=== PATIENT | male | born 1960 | race Caucasian/White ===

== ENCOUNTER 2017-02-14 00:29 | Inpatient (IN) | payer OTHER ==
[2017-02-14] VITALS (13 sets, daily range): BP systolic 95–124; BP diastolic 73–84
[~2017-02-14] VITALS: Ht 203.2 cm; Wt 100.7 kg
--- NOTE | ~2017-02-14 | D ---
[facility] [place] [address] DISCHARGE SUMMARY Name: LAN PLASCENCIA Room #: 208-P [facility] IN M.R.#: [id number] Admission: 02/14/17 Attend Phys: Louis Andrea MD Discharge: 02/16/17 Date of : 58 Report #: [id number] THIS REPORT FOR: //name// CC: Louis LUND [facility] DATE OF SERVICE: 02/16/2017 FINAL DIAGNOSES: 1. Anterior wall myocardial infarction, status post percutaneous angioplasty. 2. Hypercholesterolemia. 3. Gastroesophageal reflux disease. 4. Remote history of atrial fibrillation. 5. Schizophrenia. 6. Iovpkpg-Lqscr-Iprtp disease. HOSPITAL COURSE: Please see the original H and P for full details. The patient presented with substernal chest pains, diagnosed with an acute anterior wall myocardial infarction. Please see the laborer golf course report for full details. He was found to have total occlusion of the LAD just after takeoff of the first diagonal artery. Percutaneous angioplasty was performed with placement of a drug-eluting stent. The patient was transferred to the CCU for monitoring. He remained stable on the CCU floor. The beta rob was added to his medical regimen. The LV function during the OK was approximately 40-45%. An VINICIO inhibitor was not added in view of a low blood pressure. Clinically, he reported no further episodes of angina. He is stable for discharge and follow up in the office. FINAL DISPOSITION: Aspirin 325 mg daily, Effient 10 mg daily, Toprol-XL 50 mg daily, and atorvastatin 40 mg at night. <ELECTRONICALLY SIGNED> By: Louis Andrea MD 02/18/17 0809 0909 1003 Louis Andrea MD /nt
--- NOTE | ~2017-02-14 | CATHLAB ---
[facility] [place] [address] INVASIVE PROCEDURE REPORT Name: LAN PLASCENCIA Room #: 208-P ADM IN M.R.#: [id number] Admission: 02/14/17 Attend Phys: Louis Andrea MD Discharge: Date of : 58 Date of Service: 02/14/17 0208 Report #: [id number] THIS REPORT FOR: //name// CC: Louis Landrum NO PCP DATE OF SERVICE: 02/14/2017 INDICATIONS: Acute anterior wall OH. The patient was treated with aspirin, nitro, and heparin in the ER. In the laborer, the right groin area was prepped and draped in a sterile manner. Lidocaine was given subcutaneously. A 6-Lao sheath was inserted into the right femoral artery via modified Seldinger technique. CORONARY ANATOMY: Left main artery is a large caliber vessel, with no flow-limiting lesions. The LAD is totally occluded in the mid segment just after the takeoff of the first diagonal artery. The left circumflex artery is a moderate to large size caliber vessel, dominant, as it supplies the left PDA. There is mild disease in the proximal segment of the left circumflex artery, 20%. The first OM is a moderate size caliber vessel, with mild disease proximally. The second obtuse marginal artery has a moderate stenosis in the proximal segment, 50%. The left PDA has mild disease proximally. The RCA is a small, nondominant vessel. A left ventriculogram was performed at the end of the procedure, revealing mild to moderate segmental left ventricular dysfunction, EF of 40% to 45%. There is hypokinesis of the anterior lateral wall. The LVEDP is approximately 30 mmHg. There is no gradient across the outflow tract. ANGIOPLASTY REPORT: A 6-Lao system was used. The patient was given IV Cangrelor and IV Angiomax. I was able to pass a Luge wire through the obstruction in the LAD and placed it into the distal portion. The occluded area was predilated with a 2.0 mm Euphora balloon. There was a long area of stenosis, I elected to place a 2.75 x 30 mm Resolute (drug-eluting stent), inflated up to 14 atmospheres. This stent was postdilated with a 3.[address] [address] INVASIVE PROCEDURE REPORT Name: LAN PLASCENCIA Room #: 208-P [facility] IN [facility]#: [id number] Admission: 02/14/17 Attend Phys: Louis Andrea MD Discharge: Date of : 58 Date of Service: 02/14/17 0208 Report #: [id number] noncompliant balloon, NC Euphora, dilated up to 16 atmospheres. Final injections revealed ROM 3 blood flow with a 0% residual stenosis at the lesion site. IMPRESSION: 1. Successful insertion of a drug-eluting stent into the total occlusion in the mid segment of the left anterior descending coronary artery. 2. Left dominant system. 3. Moderate disease in the second obtuse marginal artery. 4. Mild to moderate segmental left ventricular dysfunction. 5. Recommend dual antiplatelet therapy. <ELECTRONICALLY SIGNED> By: Louis Andrea MD 02/14/172111 7 20 Louis Andrea MD /nt
--- NOTE | ~2017-02-14 | EKG ---
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
--- NOTE | ~2017-02-14 | H ---
[facility] [place] [address] HISTORY AND PHYSICAL Name: LAN PLASCENCIA Room #: 208-P [facility] IN M.R.#: [id number] Admission: 02/14/17 Attend Phys: Louis Andrea MD Discharge: Date of : 58 Report #: [id number] THIS REPORT FOR: //name// CC: Louis LUND PCP INDICATION: Chest pains. HISTORY OF PRESENT ILLNESS: This is a 56-year-old gentleman presenting with acute onset of substernal chest pain and shortness of breath. He resides at a [facility] and developed chest pain around little bit after midnight. The ECG done by EMS revealed ST elevation in the anterior leads. The patient denies any history of fever, chills, or nausea. There is no history of diabetes mellitus or hypertension. PAST MEDICAL HISTORY: Atrial fibrillation approximately 10 years ago at [facility]. History of GERD, osteoarthritis, Xaabobg-Jwryg-Izauf disease, schizophrenia. ALLERGIES: PENICILLIN. CURRENT MEDICATIONS: Include aspirin once a day, fish oil, hydrocodone, omeprazole 20 mg daily, supplements. SOCIAL HISTORY: Denies tobacco use, resides at the [facility]. Denies any history of tobacco use. FAMILY HISTORY: Negative for premature CAD. REVIEW OF SYSTEMS: A full 10-point review of systems is performed. Only the pertinent positives and negatives are described in the HPI. PHYSICAL EXAMINATION: VITAL SIGNS: Blood pressure is 130/70, heart rate is 80 beats per minute. GENERAL APPEARANCE: He is a well-developed, well-nourished male in no acute respiratory distress. HEAD AND EYES: Normocephalic. Sclerae are anicteric. ENT: Oral mucosa moist. NECK: Supple. LUNGS: Clear to auscultation. CARDIAC: Regular rate and rhythm, S1, S2 positive. No gallops. ABDOMEN: Soft, nontender. Bowel sounds positive. EXTREMITIES: No major joint deformities. No edema. LABORATORY VALUES: ECG reveals sinus rhythm with ST elevation in leads V1 through V4. [facility] [address] [place] [address] HISTORY AND PHYSICAL Name: DANVILLELAN Room #: [address] [place] [address] IN .R.#: [id number] Admission: 02/14/17 Attend Phys: Louis Andrea MD Discharge: Date of : 58 Report #: [id number] ASSESSMENT AND PLAN: 1. Rule out acute anteroseptal myocardial infarction. The patient will be taken emergently to the cardiac tag and label cutter. The procedure was discussed with the patient. 2. Remote history of atrial fibrillation, remains in sinus rhythm. 3. Gastroesophageal reflux disease. 4. Osteoarthritis. 5. Hypercholesterolemia, will need a lipid panel evaluated. <ELECTRONICALLY SIGNED> By: Louis Andrea MD 02/14/17 0819 0102 0301 Louis Andrea MD /nt
--- NOTE | ~2017-02-14 | EKG ---
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 : 1960 Requested By: Louis Andrea Order Number: [id number] : Ammon Montes Measurements Intervals [place] Rate: 78 P: 35 KS: 196 QRS: 112 QRSD: 100 T: 141 QT: 415 QTc: 473 Interpretive Statements Sinus rhythm Left posterior fascicular block Probable anteroseptal infarct, recent Lateral leads are also involved No previous ECG available for comparison Electronically Signed On 02-16-2017 8:54:29 CDT by Ammon Montes [email or web address] <ELECTRONICALLY SIGNED> By: Ammon Montes MD 02/16/17 0854 D: 05716 6 Ammon Montes MD /ARLEN
--- NOTE | ~2017-02-14 | EKG ---
[address] [address] ELECTROCARDIOGRAM REPORT Name: LAN PLASCENCIA Room #: 208-P ADM IN M.R.#: [id number] Admission: 02/14/17 Attend Phys: Louis Andrea MD Discharge: Date of : 58 Report #: [id number] THIS REPORT FOR: //name// [facility] Test Date: 2017-02-14 Test Time: 07:49:14 Pat Name: LAN PLASCENCIA Department: Room: 208 P Gender: M Regulatory Scientist: clarice : 1960 Requested By: Louis Andrea Order Number: [id number] MD: Ammon Montes Measurements Intervals [place] Rate: 93 P: 59 TN: 202 QRS: 100 QRSD: 84 T: 88 QT: 357 QTc: 445 Interpretive Statements Sinus rhythm Borderline prolonged TN interval Nonspecific T abnormalities, lateral leads No previous ECG available for comparison Electronically Signed On 02-16-2017 9:03:01 CDT by Ammon Montes [email or web address] <ELECTRONICALLY SIGNED> By: Ammon Montes MD 02/16/17 0903 0749 0749 Ammon Montes MD /ARLEN
[2017-02-14 00:53] LABS: BASOPHILS 0.4 % (0.0-2.0); EOSINOPHILS 5.8 % (0.0-3.0); HEMATOCRIT 42.6 % (42.0-52.0); HEMOGLOBIN 14.3 gm/dL (14.0-18.0); LYMPHOCYTES 29.2 % (24.0-44.0); MCH 29.6 pg (26.0-34.0); MCHC 33.5 g/dL (28.0-37.0); MCV 88.3 fL (80.0-100.0); MONOCYTES 7.3 % (1.0-8.0); PLATELET COUNT 220 thou/uL (150-400); POLYS 57.3 % (36.0-66.0); RBC 4.82 mil/uL (4.50-6.00); RDW 14.1 % (10.5-14.5); WBC 10.5 thou/uL (4.0-11.0)
[2017-02-14 01:05] LABS: MANUAL DIFF NO
[2017-02-14 01:08] LABS: ANION GAP 12 mmol/L (7-16); BUN 9 mg/dL (7-18); CALCIUM 8.8 mg/dL (8.5-10.1); CHLORIDE 104 mmol/L (98-107); CO2 24 mmol/L (21-32); CREATININE 1.3 mg/dL (0.7-1.3); GLUCOSE 187 mg/dL (74-106); POTASSIUM 3.1 mmol/L (3.5-5.1); PROTIME 10.5 Seconds (9.3-11.4); SODIUM 140 mmol/L (136-145)
[2017-02-14 01:19] LABS: ALBUMIN 3.6 g/dL (3.4-5.0); ALKALINE PHOSPHATASE 61 U/L (46-116); MAGNESIUM 1.7 mg/dL (1.8-2.4); NT-PRO BRAIN NAT PEPTIDE 18 pg/mL (<300); SGOT 20 U/L (15-37); SGPT 31 U/L (30-65); TOTAL BILIRUBIN 0.1 mg/dL (<0.1-1.0); TOTAL PROTEIN 7.4 g/dL (6.4-8.2); TROPONIN-I < 0.04 ng/mL (<0.04-0.07)
[2017-02-14] MEDS ORDERED: ASPIRIN325 PO (04:13)
[2017-02-14] MEDS ORDERED: ZYRTEC10 M5 PO (04:14)
[2017-02-14] MEDS ORDERED: FISH OIL 1,001000 M2 PO (04:15)
[2017-02-14] MEDS ORDERED: CO Q-10100 MG PO (04:15)
[2017-02-14] MEDS ORDERED: HYDROCODONE-AP1 EAC6 PO (04:16)
[2017-02-14] MEDS ORDERED: OMEPRAZOLE20 M2 PO (04:17)
[2017-02-14] MEDS ORDERED: ONE DAILY FOR1 EACH PO (04:18)
[2017-02-14] MEDS ORDERED: OYSTER SHELL 51 EACH PO (04:19)
[2017-02-14] MEDS ORDERED: [UNRECOGNIZED DRUG - OTHER] PO (04:20)
[2017-02-14 07:37] LABS: HEMOGLOBIN 15.2 gm/dL (14.0-18.0); MCH 29.5 pg (26.0-34.0); MCHC 33.8 g/dL (28.0-37.0); MCV 87.2 fL (80.0-100.0); RBC 5.17 mil/uL (4.50-6.00); RDW 13.9 % (10.5-14.5)
[2017-02-14 07:54] LABS: ANION GAP 11 mmol/L (7-16); BUN 9 mg/dL (7-18); CALCIUM 9.1 mg/dL (8.5-10.1); CHLORIDE 104 mmol/L (98-107); CHOLESTEROL 203 mg/dL (<200); CO2 26 mmol/L (21-32); CREATININE 1.2 mg/dL (0.7-1.3); GLUCOSE 109 mg/dL (74-106); HDL CHOLESTEROL 33 mg/dL (>40); LDL CHOLESTEROL 99 mg/dL (<100); SODIUM 141 mmol/L (136-145); TC:HDL 6.2 Ratio (Not establshd); TRIGLYCERIDE 357 mg/dL (<150); VLDL 71 mg/dL (<40)
[2017-02-14 07:55] LABS: POTASSIUM 4.2 mmol/L (3.5-5.1)
[2017-02-14 08:18] LABS: TROPONIN-I 71.81 ng/mL (<0.04-0.07)
[2017-02-15 02:59] LABS: HEMATOCRIT 41.1 % (42.0-52.0); HEMOGLOBIN 13.9 gm/dL (14.0-18.0); MCH 29.4 pg (26.0-34.0); MCHC 33.8 g/dL (28.0-37.0); MCV 86.7 fL (80.0-100.0); RBC 4.74 mil/uL (4.50-6.00); RDW 13.7 % (10.5-14.5); WBC 11.3 thou/uL (4.0-11.0)
[2017-02-15 03:13] LABS: CALCIUM 8.5 mg/dL (8.5-10.1); CREATININE 1.1 mg/dL (0.7-1.3); POTASSIUM 3.5 mmol/L (3.5-5.1)
[2017-02-15 05:46] VITALS: BP 146/74
[2017-02-15 08:25] VITALS: BP 94/66
[2017-02-15 11:03] VITALS: BP 88/60
[2017-02-15 15:23] VITALS: BP 106/70
[2017-02-15 20:14] VITALS: BP 116/76
[2017-02-16 03:41] VITALS: BP 110/89
[2017-02-16 05:32] LABS: CALCIUM 8.8 mg/dL (8.5-10.1); CREATININE 1.2 mg/dL (0.7-1.3); POTASSIUM 3.8 mmol/L (3.5-5.1)
[2017-02-16 05:34] LABS: TROPONIN-I 11.49 ng/mL (<0.04-0.07)
[2017-02-16] MEDS ORDERED: EFFIENT10 MG PO (07:57)
[2017-02-16] MEDS ORDERED: TOPROL XL25 MG PO (07:57)
[2017-02-16] MEDS ORDERED: ATORVASTATIN CA40 MG PO (07:57)
[2017-02-16 08:35] VITALS: BP 99/61
[2017-02-16 08:38] VITALS: BP 110/89
== END 2017-02-16 14:13 | DRG 247 ==
LOC: ER 00:29 → 2N 01:04 → TBA 01:04 → 2N 03:27
PROVIDERS: Internal Medicine Cardiovascular Disease; Nurse Practitioner Family
PROC: 027034Z Dilation of Coronary Artery, One Artery with Drug-eluting Intraluminal Device, Percutaneous Approach (ICD-10-PCS; principal; 2017-02-14)
PROC: B2111ZZ Fluoroscopy of Multiple Coronary Arteries using Low Osmolar Contrast (ICD-10-PCS; principal; 2017-02-14)
PROC: 4A023N7 Measurement of Cardiac Sampling and Pressure, Left Heart, Percutaneous Approach (ICD-10-PCS; principal; 2017-02-14)
PROC: B2151ZZ Fluoroscopy of Left Heart using Low Osmolar Contrast (ICD-10-PCS; principal; 2017-02-14)
DX: I21.09 ST elevation (STEMI) myocardial infarction involving other coronary artery of anterior wall (principal); E78.00 Pure hypercholesterolemia, unspecified; K21.9 Gastro-esophageal reflux disease without esophagitis; I48.91 Unspecified atrial fibrillation; E78.5 Hyperlipidemia, unspecified; I25.82 Chronic total occlusion of coronary artery; F20.9 Schizophrenia, unspecified; G60.0 Hereditary motor and sensory neuropathy; M19.90 Unspecified osteoarthritis, unspecified site; Z79.82 Long term (current) use of aspirin; Z79.01 Long term (current) use of anticoagulants; Z79.899 Other long term (current) drug therapy; Z88.0 Allergy status to penicillin; Z91.048 Other nonmedicinal substance allergy status
CPT/HCPCS: 10081

== ENCOUNTER → 2017-04-20 | Outpatient (CLI) | payer OTHER ==
[~2017-04-20] MED LIST: ASPIRIN325 PO; ATORVASTATIN CA40 MG PO; CO Q-10100 MG PO; EFFIENT10 MG PO; FISH OIL 1,001000 M2 PO; HYDROCODONE-AP1 EAC6 PO; OMEPRAZOLE20 M2 PO; ONE DAILY FOR1 EACH PO; OYSTER SHELL 51 EACH PO; TOPROL XL25 MG PO; ZYRTEC10 M5 PO; [UNRECOGNIZED DRUG - OTHER] PO
--- NOTE | ~2017-04-20 | 2DMMODE ---
[facility] [address] [address] 2 D/M-MODE ECHOCARDIOGRAM Name: LAN PLASCENCIA Room #: REG [facility]#: [id number] Admission: 04/20/17 Attend Phys: Louis Andrea MD Discharge: Date of : 58 Date of Service: 04/20/17 1432 Report #: [id number] THIS REPORT FOR: //name// APPROVED REPORT Study performed: 04/20/2017 12:50:24 EXAM: Comprehensive 2D, Doppler, and color-flow Echocardiogram Patient Location: Echo lab Other Information Study Quality: Good Indications Atrial Fibrillation CAD 2D Dimensions RVDd: 33.72 mm LVEF(%): 68.39 (>50%) IVSd: 13.81 (7-11mm) LVOT Diam: 22.76 (18-24mm) LVDd: 46.69 mm PWd: 14.08 (7-11mm) Ascending Ao: 31.56 (22-36mm) LVDs: 28.87 (25-40mm) Aortic Root: 33.49 mm IVC: 11.00 mm Castro's LVEF: 68.39 % Volumes Left Atrial Volume (Systole) Single Plane 4CH: 33.07 mL Single Plane 2CH: 37.65 mL LA ESV Index: 16.00 mL/m2 Aortic Valve AoV Peak Marbin.: 1.11 m/s AO Peak Gr.: 4.92 mmHg LVOT Max P.86 mmHg LVOT Max V: 0.85 m/s BENIGNO Vmax: 3.10 cm2 Mitral Valve E/A Ratio: 0.6 MV Decel. Time: 219.61 ms MV E Max Marbin.: 0.51 m/s MV A Marbin.: 0.79 m/s MV PHT: 63.69 ms IVRT: 152.25 ms [facility] [place] [address] 2 D/M-MODE ECHOCARDIOGRAM Name: LAN PLASCENCIA Room #: [facility]#: [id number] Admission: 04/20/17 Attend Phys: Louis Andrea MD Discharge: Date of : 58 Date of Service: 04/20/17 1432 Report #: [id number] Pulmonary Valve PV Peak Marbin.: 1.13 m/s PV Peak Gr.: 5.09 mmHg Pulmonary Vein P Vein S: 0.55 m/s P Vein A: 0.23 m/s P Vein D: 0.39 m/s P Vein A Dur.: 72.7 msec P Vein S/D Ratio: 1.41 Tricuspid Valve TR Peak Marbin.: 2.46 m/s RAP Estimate: 5.00 mmHg TR Peak Gr.: 24.16 mmHg Left Ventricle The left ventricle is normal size. Mild concentric left ventricular hypertrophy. The left ventricular systolic function is normal. The left ventricular ejection fraction is within the normal range. LVEF is 60%. Mild diastolic dysfunction is present (impaired relaxation pattern). Right Ventricle The right ventricle is normal size. The right ventricular systolic function is normal. Atria The left atrium size is normal. The right atrium size is normal. Aortic Valve The aortic valve is normal in structure. Trace aortic regurgitation. There is no aortic valvular stenosis. Mitral Valve The mitral valve is normal in structure. Trace mitral regurgitation. No evidence of mitral valve stenosis. Tricuspid Valve The tricuspid valve is normal in structure. Mild tricuspid regurgitation. Pulmonic Valve The pulmonary valve is normal in structure. There is no pulmonic valvular regurgitation. Great Vessels The aortic root is normal in size. IVC is normal in size and [facility] [address] [place] [address] 2 D/M-MODE ECHOCARDIOGRAM Name: LAN PLASCENCIA Room #: REG [facility]#: [id number] Admission: 04/20/17 Attend Phys: Louis Andrea MD Discharge: Date of : 58 Date of Service: 04/20/17 1432 Report #: [id number] collapses >50% with inspiration. <Conclusion> The left ventricle is normal size. Mild concentric left ventricular hypertrophy. The left ventricular systolic function is normal. LVEF is 60%. Mild diastolic dysfunction is present (impaired relaxation pattern). The right ventricle is normal size. The left atrium size is normal. The aortic valve is normal in structure. Trace mitral regurgitation. Mild tricuspid regurgitation. <ELECTRONICALLY SIGNED> By: Louis Andrea MD 04/20/17 143 31 31 Louis Andrea MD /INF
== END ==
LOC: CV 09:59
DX: I25.10 Atherosclerotic heart disease of native coronary artery without angina pectoris (principal); I48.91 Unspecified atrial fibrillation

== ENCOUNTER 2017-06-06 11:08 | Emergency (ER) | payer OTHER ==
[~2017-06-06] VITALS: Ht 188 cm; Wt 103.9 kg
--- NOTE | ~2017-06-06 | EKG ---
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 : 1960 Requested By: Troy Cerda Order Number: [id number] MD: Eduardo Carmona Measurements Intervals [place] Rate: 99 P: 38 [place]: 194 QRS: 39 QRSD: 101 T: 8 QT: 340 QTc: 437 Interpretive Statements Sinus rhythm Probable anteroseptal infarct, age indeterminate Baseline wander in lead(s) II,III,aVF,V6 Compared to ECG 03/02/2017 10:54:08 Septal Q waves are now present Electronically Signed On 06-08-2017 13:34:59 CDT by Eduardo Carmona [email or web address] <ELECTRONICALLY SIGNED> By: Eduardo Carmona MD, [facility] 06/08/17 1334 1119 1119 Eduardo Carmona MD, [facility] /EPI
--- NOTE | ~2017-06-06 | EKG ---
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: : 1960 Requested By: Troy Cerda Order Number: [id number] MD: Eduardo Carmona Measurements Intervals [place] Rate: 64 P: 34 IA: 185 QRS: -41 QRSD: 99 T: 12 QT: 435 QTc: 449 Interpretive Statements Sinus rhythm Left axis deviation Poor R wave progression Compared to ECG 03/02/2017 10:54:08 Anterior T wave abnormality is no longer present Electronically Signed On 06-08-2017 13:34:14 CDT by Eduardo Carmona [email or web address] <ELECTRONICALLY SIGNED> By: Eduardo Carmona MD, [facility] 06/08/17 1334 907 7 Eduardo Carmona MD, FACC /EPI
[2017-06-06 11:47] LABS: ABSOLUTE NEUTROPHILS 6.6 thou/uL (1.4-8.2); BASOPHILS 0.4 % (0.0-2.0); EOSINOPHILS 3.5 % (0.0-3.0); HEMATOCRIT 44.2 % (42.0-52.0); HEMOGLOBIN 15.3 gm/dL (14.0-18.0); LYMPHOCYTES 16.6 % (24.0-44.0); MCH 30.5 pg (26.0-34.0); MCHC 34.6 g/dL (28.0-37.0); MCV 88.3 fL (80.0-100.0); MONOCYTES 6.9 % (1.0-8.0); PLATELET COUNT 245 thou/uL (150-400); POLYS 72.6 % (36.0-66.0); RDW 13.9 % (10.5-14.5); WBC 9.1 thou/uL (4.0-11.0)
[2017-06-06 11:48] LABS: MANUAL DIFF NO
[2017-06-06 11:51] LABS: ANION GAP 9 mmol/L (7-16); BUN 9 mg/dL (7-18); CALCIUM 9.4 mg/dL (8.5-10.1); CHLORIDE 106 mmol/L (98-107); CO2 25 mmol/L (21-32); CREATININE 1.3 mg/dL (0.7-1.3); GLUCOSE 142 mg/dL (74-106); POTASSIUM 3.5 mmol/L (3.5-5.1); SODIUM 140 mmol/L (136-145)
[2017-06-06 12:01] LABS: ALBUMIN 3.8 g/dL (3.4-5.0); ALKALINE PHOSPHATASE 76 U/L (46-116); SGOT 30 U/L (15-37); SGPT 20 U/L (30-65); TOTAL BILIRUBIN 0.4 mg/dL (<0.1-1.0); TOTAL PROTEIN 7.8 g/dL (6.4-8.2); TROPONIN-I < 0.04 ng/mL (<0.04-0.07)
[2017-06-06 12:02] LABS: APTT 28.9 Seconds (24.5-32.8); PROTIME 10.7 Seconds (9.3-11.4)
[2017-06-06] MEDS ORDERED: PLAVIX 75 MG TA75 M1 PO (13:01)
[2017-06-06] MEDS ORDERED: COENZYME Q10100 M2 PO (13:02)
[2017-06-06] MEDS ORDERED: TOPAMAX50 MG PO (13:05)
[2017-06-06] MEDS ORDERED: FISH OIL 1,001000 M2 PO (13:07)
== END 2017-06-06 15:15 | disposition home or self-care (01) ==
LOC: ER 11:08
PROVIDERS: Physician Assistant
DX: R07.9 Chest pain, unspecified (principal); R29.810 Facial weakness; R09.1 Pleurisy; K21.9 Gastro-esophageal reflux disease without esophagitis; I48.91 Unspecified atrial fibrillation; Z88.0 Allergy status to penicillin; Z86.73 Personal history of transient ischemic attack (TIA), and cerebral infarction without residual deficits

== ENCOUNTER 2017-10-10 19:43 | Emergency (ER) | payer OTHER ==
[~2017-10-10] VITALS: Ht 203.2 cm; Wt 103.9 kg
[~2017-10-10 19:43] MED LIST changes: +COENZYME Q10100 M2 PO; +PLAVIX 75 MG TA75 M1 PO; +TOPAMAX50 MG PO
[2017-10-10] MEDS ORDERED: [UNRECOGNIZED DRUG - OTHER] PO (20:30)
[2017-10-10] MEDS ORDERED: ARTIFICIAL TEAR15 M1 OPHTHALMIC (20:31)
[2017-10-10] MEDS ORDERED: MYLANTA PO (20:31)
[2017-10-10] MEDS ORDERED: PEPTO-BISM262 MG/15 PO (20:31)
[2017-10-10] MEDS ORDERED: BENADRYL25 MG PO (20:32)
[2017-10-10] MEDS ORDERED: MEDI-MECLIZINE25 MG PO (20:32)
[2017-10-10] MEDS ORDERED: LOPERAMIDE 2 MG2 M1 PO (20:32)
[2017-10-10] MEDS ORDERED: [UNRECOGNIZED DRUG - OTHER] PO (20:33)
[2017-10-10] MEDS ORDERED: XOPENEX HFA15 GM INH (20:34)
[2017-10-10] MEDS ORDERED: MILK OF MA2400 MG/10 PO (20:34)
[2017-10-10 22:30] VITALS: BP 126/89
== END 2017-10-10 22:30 | disposition home or self-care (01) ==
LOC: ER 19:43
DX: R51 Headache (principal); R42 Dizziness and giddiness; Z88.0 Allergy status to penicillin; I63.9 Cerebral infarction, unspecified; K21.9 Gastro-esophageal reflux disease without esophagitis; I48.91 Unspecified atrial fibrillation; J45.909 Unspecified asthma, uncomplicated; G47.00 Insomnia, unspecified; I25.2 Old myocardial infarction

== ENCOUNTER → 2018-04-19 | Outpatient (CLI) | payer OTHER ==
[~2018-04-19] MED LIST changes: +ARTIFICIAL TEAR15 M1 OPHTHALMIC; +BENADRYL25 MG PO; +LOPERAMIDE 2 MG2 M1 PO; +MEDI-MECLIZINE25 MG PO; +MILK OF MA2400 MG/10 PO; +MYLANTA PO; +PEPTO-BISM262 MG/15 PO; +XOPENEX HFA15 GM INH; +[UNRECOGNIZED DRUG - OTHER] PO; +[UNRECOGNIZED DRUG - OTHER] PO
== END ==
LOC: NUC 11:40
DX: I25.10 Atherosclerotic heart disease of native coronary artery without angina pectoris (principal); E78.5 Hyperlipidemia, unspecified; I48.91 Unspecified atrial fibrillation; J44.9 Chronic obstructive pulmonary disease, unspecified; Z91.89 Other specified personal risk factors, not elsewhere classified

== ENCOUNTER 2019-04-02 16:50 | Emergency (ER) | payer OTHER ==
[~2019-04-02] VITALS: Ht 193 cm; Wt 86.2 kg
[2019-04-02] MEDS ORDERED: FISH OIL 1,001000 M2 PO (17:00)
[2019-04-02] MEDS ORDERED: COENZYME Q10100 MG PO (17:00)
[2019-04-02] MEDS ORDERED: IBUPROFEN 600600 M1 PO (17:23)
[2019-04-02 18:01] LABS: HEMOGLOBIN 14.7 gm/dL (14.0-18.0); MCH 30.3 pg (26.0-34.0); MCHC 34.1 g/dL (28.0-37.0); MCV 88.7 fL (80.0-100.0); RBC 4.85 mil/uL (4.50-6.00); RDW 13.5 % (10.5-14.5); WBC 7.1 thou/uL (4.0-11.0)
[2019-04-02 18:14] LABS: PROTIME 10.7 Seconds (9.3-11.4)
[2019-04-02 18:30] VITALS: BP 113/78
== END 2019-04-02 18:30 | disposition home or self-care (01) ==
LOC: ER 16:50
PROVIDERS: Physician Assistant
DX: S86.812A Strain of other muscle(s) and tendon(s) at lower leg level, left leg, initial encounter (principal); K21.9 Gastro-esophageal reflux disease without esophagitis; I48.91 Unspecified atrial fibrillation; J45.909 Unspecified asthma, uncomplicated; G47.00 Insomnia, unspecified; G43.909 Migraine, unspecified, not intractable, without status migrainosus; Z95.5 Presence of coronary angioplasty implant and graft; Z91.048 Other nonmedicinal substance allergy status; Z88.0 Allergy status to penicillin; Z86.73 Personal history of transient ischemic attack (TIA), and cerebral infarction without residual deficits; Z86.718 Personal history of other venous thrombosis and embolism; X58.XXXA Exposure to other specified factors, initial encounter; Y92.89 Other specified places as the place of occurrence of the external cause; Y93.89 Activity, other specified; Y99.8 Other external cause status

== ENCOUNTER → 2019-05-12 | Outpatient (CLI) | payer OTHER ==
[~2019-05-12] MED LIST changes: +COENZYME Q10100 MG PO; +IBUPROFEN 600600 M1 PO
--- NOTE | 2019-05-12 10:26 | 2DMMODE ---
[facility] [place] [address] 2 D/M-MODE ECHOCARDIOGRAM Name: LAN PLASCENCIA Room #: REG [facility]#: [id number] Admission: 05/12/19 Attend Phys: Louis Andrea MD Discharge: Date of : 58 Date of Service: 05/12/19 1026 Report #: [id number] THIS REPORT FOR: //name// APPROVED REPORT Study performed: 05/12/2019 09:31:25 EXAM: Comprehensive 2D, Doppler, and color-flow Echocardiogram Patient Location: Out-Patient Status: routine BSA: 2.45 HR: 75 bpm BP: 110/84 mmHg Rhythm: NSR Other Information Study Quality: Good Indications CAD Hx: OH, stents, Afib. 2D Dimensions RVDd: 34.77 mm IVSd: 12.00 (7-11mm) LVOT Diam: 22.86 (18-24mm) LVDd: 53.55 mm PWd: 10.68 (7-11mm) Ascending Ao: 34.39 (22-36mm) LVDs: 33.62 (25-40mm) Aortic Root: 34.32 mm Volumes Left Atrial Volume (Systole) Single Plane 4CH: 34.98 mL Single Plane 2CH: 32.10 mL LA ESV Index: 14.00 mL/m2 Aortic Valve AoV Peak Marbin.: 0.97 m/s AO Peak Gr.: 3.79 mmHg LVOT Max P.62 mmHg LVOT Max V: 0.81 m/s BENIGNO Vmax: 3.41 cm2 Mitral Valve E/A Ratio: 0.6 MV Decel. Time: 307.79 ms [facility] [address] [address] 2 D/M-MODE ECHOCARDIOGRAM Name: LAN PLASCENCIA Room #: REG [facility]#: [id number] Admission: 05/12/19 Attend Phys: Louis Andrea MD Discharge: Date of : 58 Date of Service: 05/12/19 1026 Report #: [id number] MV E Max Marbin.: 0.42 m/s MV A Marbin.: 0.72 m/s MV PHT: 89.26 ms IVRT: 89.97 ms Pulmonary Valve PV Peak Marbin.: 1.17 m/s PV Peak Gr.: 5.49 mmHg Pulmonary Vein P Vein S: 0.52 m/s P Vein D: 0.31 m/s P Vein S/D Ratio: 1.68 Tricuspid Valve TR Peak Marbin.: 2.39 m/s RAP Estimate: 5.00 mmHg TR Peak Gr.: 22.81 mmHg PA Pressure: 28.00 mmHg Left Ventricle The left ventricle is normal size. Mild basal septal hypertrophy is present. Left ventricular systolic function is normal. LVEF is 55%. Mild diastolic dysfunction is present (impaired relaxation pattern). Right Ventricle The right ventricle is normal size. The right ventricular systolic function is normal. Atria The left atrium size is normal. The right atrium size is normal. Aortic Valve The aortic valve is normal in structure. No aortic regurgitation is present. There is no aortic valvular stenosis. Mitral Valve The mitral valve is normal in structure. Mild mitral regurgitation. Tricuspid Valve The tricuspid valve is normal in structure. Mild tricuspid regurgitation. Estimated PAP is 28mmHg. Pulmonic Valve The pulmonary valve is normal in structure. There is no pulmonic [facility] [place] [address] 2 D/M-MODE ECHOCARDIOGRAM Name: LAN PLASCENCIA Room #: REG [facility]#: [id number] Admission: 05/12/19 Attend Phys: Louis Andrea MD Discharge: Date of : 58 Date of Service: 05/12/19 1026 Report #: [id number] valvular regurgitation. Great Vessels The aortic root is normal in size. The ascending aorta is normal in size. IVC is normal in size and collapses >50% with inspiration. Pericardium There is no pericardial effusion. <Conclusion> The left ventricle is normal size. Left ventricular systolic function is normal. Mild diastolic dysfunction is present (impaired relaxation pattern). The right ventricle is normal size. The left atrium size is normal. The aortic valve is normal in structure. Mild mitral regurgitation. Mild tricuspid regurgitation. Estimated PAP is 28mmHg. <ELECTRONICALLY SIGNED> By: Louis Andrea MD 05/12/19 1026 1026 1026 Louis Andrea MD /INF
== END ==
LOC: CV 09:18
DX: I08.1 Rheumatic disorders of both mitral and tricuspid valves (principal); I25.2 Old myocardial infarction; I48.91 Unspecified atrial fibrillation; I25.10 Atherosclerotic heart disease of native coronary artery without angina pectoris; Z95.5 Presence of coronary angioplasty implant and graft

== ENCOUNTER 2019-08-24 08:57 | Emergency (ER) | payer OTHER ==
[~2019-08-24] VITALS: Ht 203.2 cm; Wt 105.2 kg
[2019-08-24] MEDS ORDERED: ASA81BEC PO (09:11)
[2019-08-24] MEDS ORDERED: FISH OIL 1,0001 EAC9 PO (09:12)
[2019-08-24] MEDS ORDERED: OMEPRAZOLE 20 M20 M1 PO (09:13)
[2019-08-24] MEDS ORDERED: SYNTHROID25 MC1 PO (09:13)
[2019-08-24 09:15] LABS: BASOPHILS 0.4 % (0.0-2.0); EOSINOPHILS 5.5 % (0.0-3.0); HEMATOCRIT 43.2 % (42.0-52.0); HEMOGLOBIN 14.6 gm/dL (14.0-18.0); LYMPHOCYTES 23.8 % (24.0-44.0); MCHC 33.7 g/dL (28.0-37.0); MCV 88.9 fL (80.0-100.0); MONOCYTES 9.3 % (1.0-8.0); PLATELET COUNT 222 thou/uL (150-400); RBC 4.86 mil/uL (4.50-6.00); RDW 13.3 % (10.5-14.5); WBC 8.2 thou/uL (4.0-11.0)
[2019-08-24 09:25] LABS: ANION GAP 7 mmol/L (7-16); BUN 17 mg/dL (7-18); CALCIUM 9.3 mg/dL (8.5-10.1); CHLORIDE 101 mmol/L (98-107); CO2 30 mmol/L (21-32); CREATININE 1.2 mg/dL (0.7-1.3); GLUCOSE 96 mg/dL (74-106); SODIUM 138 mmol/L (136-145)
[2019-08-24] MEDS ORDERED: TOPROL XL50 MG PO (09:29)
[2019-08-24 09:33] LABS: TROPONIN-I <0.06 ng/mL (<0.06)
[2019-08-24] MEDS ORDERED: ALEVE220 MG PO (10:15)
[2019-08-24 10:26] VITALS: BP 115/73
--- NOTE | 2019-08-24 16:48 | EKG ---
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 : 1960 Requested By: Barry Cool Order Number: [id number] MD: Ammon Mnotes Measurements Intervals [place] Rate: 84 P: 39 MT: 201 QRS: 24 QRSD: 108 T: 41 QT: 415 QTc: 491 Interpretive Statements Sinus rhythm Low voltage, extremity and precordial leads Probable anteroseptal infarct, old Compared to ECG 06/06/2017 11:19:52 Low QRS voltage now present Myocardial infarct finding still present Electronically Signed On 08-24-2019 16:48:21 CONTROL EQUIPMENT ELECTRICIAN by Ammon Montes [email or web address] <ELECTRONICALLY SIGNED> By: Ammon Montes MD 08/24/19 9648 9 9 Ammon Montes MD /ARLEN
== END 2019-08-24 10:27 | disposition home or self-care (01) ==
LOC: ER 08:57
PROVIDERS: Emergency Medicine
DX: R07.89 Other chest pain (principal); K21.9 Gastro-esophageal reflux disease without esophagitis; I48.91 Unspecified atrial fibrillation; J45.909 Unspecified asthma, uncomplicated; G43.909 Migraine, unspecified, not intractable, without status migrainosus; Z88.0 Allergy status to penicillin; Z88.8 Allergy status to other drugs, medicaments and biological substances; Z86.73 Personal history of transient ischemic attack (TIA), and cerebral infarction without residual deficits; Z95.5 Presence of coronary angioplasty implant and graft

== ENCOUNTER → 2019-11-17 | Outpatient (CLI) | payer OTHER ==
[~2019-11-17] MED LIST changes: +ALEVE220 MG PO; +ASA81BEC PO; +FISH OIL 1,0001 EAC9 PO; +OMEPRAZOLE 20 M20 M1 PO; +SYNTHROID25 MC1 PO; +TOPROL XL50 MG PO
== END ==
LOC: SJCVC 10:37
DX: R94.31 Abnormal electrocardiogram [ECG] [EKG] (principal); I25.10 Atherosclerotic heart disease of native coronary artery without angina pectoris; I10 Essential (primary) hypertension; E78.00 Pure hypercholesterolemia, unspecified; K21.9 Gastro-esophageal reflux disease without esophagitis; Z79.899 Other long term (current) drug therapy

== ENCOUNTER → 2020-05-31 | Outpatient (CLI) | payer OTHER | LOC: SJCVCIMAG 09:52 | PROVIDERS: ATTEND Internal Medicine Cardiovascular Disease | DX: I25.10 Atherosclerotic heart disease of native coronary artery without angina pectoris (principal); R94.31 Abnormal electrocardiogram [ECG] [EKG]; I10 Essential (primary) hypertension; E78.00 Pure hypercholesterolemia, unspecified; K21.9 Gastro-esophageal reflux disease without esophagitis; Z79.899 Other long term (current) drug therapy ==

== ENCOUNTER 2021-10-29 22:20 | Emergency (ER) | payer OTHER ==
[~2021-10-29] VITALS: Ht 188 cm; Wt 97.5 kg
[2021-10-29] MEDS ORDERED: ACETAMINOPHEN PO (22:25)
[2021-10-29] MEDS ORDERED: COENZYME Q10100 MG PO (22:26)
[2021-10-29] MEDS ORDERED: PROTONIX40 M2 PO (22:27)
[2021-10-29] MEDS ORDERED: TRAMADOL 50 MG50 MG PO (22:29)
[2021-10-29] MEDS ORDERED: ARTIFICIAL TEAR15 M4 EA. EYE (22:31)
[2021-10-29] MEDS ORDERED: XOPENEX HFA15 GM INH (22:33)
[2021-10-29] MEDS ORDERED: CLOBETASOL 0.0560 G1 TOP (22:35)
[2021-10-29] MEDS ORDERED: MINERIN CREME454 G1 TOP (22:36)
[2021-10-29] MEDS ORDERED: NUPERCAINAL56.7 GM TOP (22:36)
[2021-10-29] MEDS ORDERED: COENZYME Q10100 M2 PO (22:42)
[2021-10-29] MEDS ORDERED: LOPERAMIDE 2 MG2 M1 PO (22:44)
[2021-10-29] MEDS ORDERED: OYSTER SHELL 21 EAC2 PO (22:46)
[2021-10-29] MEDS ORDERED: [UNRECOGNIZED DRUG - REMARK] PO (22:48)
[2021-10-29 22:49] LABS: ABSOLUTE NEUTROPHILS 3.6 thou/uL (1.4-8.2); BASOPHILS 0.3 % (0.0-2.0); HEMOGLOBIN 15.3 gm/dL (14.0-18.0); LYMPHOCYTES 38.3 % (24.0-44.0); MCH 30.1 pg (26.0-34.0); MCV 88.6 fL (80.0-100.0); PLATELET COUNT 211 thou/uL (150-400); POLYS 47.4 % (36.0-66.0); RBC 5.08 mil/uL (4.50-6.00); RDW 14.3 % (10.5-14.5); WBC 7.5 thou/uL (4.0-11.0)
[2021-10-29 22:52] LABS: CREATININE 1.2 mg/dL (0.7-1.3); POTASSIUM 3.7 mmol/L (3.5-5.1)
[2021-10-29 23:03] LABS: ALBUMIN 3.4 g/dL (3.4-5.0); MAGNESIUM 1.9 mg/dL (1.8-2.4); TOTAL BILIRUBIN 0.3 mg/dL (0.2-1.0); TOTAL PROTEIN 7.5 g/dL (6.4-8.2)
[2021-10-30 04:28] VITALS: BP 117/65
--- NOTE | 2021-10-30 07:50 | EKG ---
[facility] [place] [address] ELECTROCARDIOGRAM REPORT Name: LAN PLASCENCIA Room #: REG HÉCTOR Rod#: [id number] Admission: 10/29/21 Attend Phys: Discharge: Date of : 58 Report #: [id number] 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: susan wang : 1960 Requested By: Devang Hall Order Number: [id number] MD: Eduardo Carmona Measurements Intervals [place] Rate: 82 P: 21 IN: 193 QRS: 15 QRSD: 91 T: 35 QT: 423 QTc: 494 Interpretive Statements Sinus rhythm Low voltage, extremity leads Borderline prolonged QT interval Baseline wander in lead(s) V3 Compared to ECG 08/24/2019 09:00:55 No significant change was found Electronically Signed On 10-30-2021 7:50:00 OPERATIONS GENERAL AGENT by Eduardo Cramona [email or web address] <ELECTRONICALLY SIGNED> By: Eduardo Carmona MD, [facility] 10/30/21 0750 2227 26 Eduardo Carmona MD, FACC /EPI
== END 2021-10-30 04:29 | disposition home or self-care (01) ==
LOC: ER 22:20
PROVIDERS: Emergency Medicine
DX: R07.89 Other chest pain (principal); K21.9 Gastro-esophageal reflux disease without esophagitis; I48.91 Unspecified atrial fibrillation; G43.909 Migraine, unspecified, not intractable, without status migrainosus; I25.2 Old myocardial infarction; Z86.73 Personal history of transient ischemic attack (TIA), and cerebral infarction without residual deficits; Z79.82 Long term (current) use of aspirin; Z79.891 Long term (current) use of opiate analgesic; Z79.899 Other long term (current) drug therapy; Z79.1 Long term (current) use of non-steroidal anti-inflammatories (NSAID); Z88.0 Allergy status to penicillin; Z88.8 Allergy status to other drugs, medicaments and biological substances; Z91.041 Radiographic dye allergy status

== ENCOUNTER → 2021-11-15 | Outpatient (CLI) | payer OTHER ==
[~2021-11-15] MED LIST changes: +ACETAMINOPHEN PO; +ARTIFICIAL TEAR15 M4 EA. EYE; +CLOBETASOL 0.0560 G1 TOP; +MINERIN CREME454 G1 TOP; +NUPERCAINAL56.7 GM TOP; +OYSTER SHELL 21 EAC2 PO; +PROTONIX40 M2 PO; +TRAMADOL 50 MG50 MG PO; +[UNRECOGNIZED DRUG - REMARK] PO
== END ==
LOC: SJCVCIMAG 07:39
PROVIDERS: ATTEND Internal Medicine Cardiovascular Disease
DX: I21.4 Non-ST elevation (NSTEMI) myocardial infarction (principal); R00.0 Tachycardia, unspecified; R07.9 Chest pain, unspecified; I25.10 Atherosclerotic heart disease of native coronary artery without angina pectoris; R06.00 Dyspnea, unspecified